=== PATIENT | male | born 1955 | race Caucasian/White ===

== ENCOUNTER → 2020-11-02 | Outpatient (CLI) | payer MEDICARE ==
[2020-11-03 09:14] LABS: HBSAG SCREEN Negative (Negative); HEP B CORE AB, TOT Negative (Negative)
[2020-11-03 10:14] LABS: HCV AB <0.1 (0.0-0.9)
[2020-11-03 11:14] LABS: RHEUMATOID ARTHRITIS FACTOR <10.0 IU/mL (0.0-13.9)
[2020-11-09 06:11] LABS: QUANTIFERON MITOGEN VALUE >10.00 IU/mL (.); QUANTIFERON NIL VALUE 0.08 IU/mL (.); QUANTIFERON TB2 AG VALUE 0.09 IU/mL (.); QUANTIFERON-TB GOLD PLUS Negative (Negative)
== END ==
LOC: LAB 13:09
PROVIDERS: Nurse Practitioner Family
DX: M79.641 Pain in right hand (principal); M79.642 Pain in left hand; M70.31 Other bursitis of elbow, right elbow; D89.9 Disorder involving the immune mechanism, unspecified; R76.8 Other specified abnormal immunological findings in serum; M79.10 Myalgia, unspecified site; Z11.59 Encounter for screening for other viral diseases
CPT/HCPCS: 73070; 73130; 82550; 82728; 83520; 85652; 86140; 86200; 86431; 86704; 86803; 87340